=== PATIENT | female | born 1995 | race Asian ===

== ENCOUNTER 2017-01-07 06:18 | Emergency (ER) | payer OTHER ==
[2017-01-07] MEDS ORDERED: NS 1,000 ML IV ONE (07:01)
[2017-01-07] MEDS ORDERED: HYDROmorphONE/DILAUDID 1 MG/ML SYR IVP ONE (07:02)
[2017-01-07] MEDS ORDERED: METOCLOPRAMIDE 10 MG/2 ML VIAL IVP ONE (07:02)
[2017-01-07] MEDS ORDERED: DEXAMETHASONE 10 MG/ML VIAL IVP ONE (07:02)
--- NOTE | 2017-01-07 07:06 | EDPHY ---
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 She states that she has had a mild sore throat and runny nose body aches for the last 3 days. Her sore throat and runny nose have improved today compared to yesterday. Her headaches worsened however she is feeling nauseous. She states that this is the worst headache she has ever had. It was gradual in onset. She does not have any neck stiffness. She took Tylenol last night for a fever of 101 but did not make her headache improved. No significant past medical history. She is not sure she had the meningitis vaccine. No focal weakness or numbness. REVIEW OF SYSTEMS: Constitutional: denies: chills, fever, recent illness, recent injury EENTM: denies: blurred vision, double vision, nose congestion Respiratory: denies: cough, shortness of breath Cardiac: denies: chest pain, irregular heart rate, lightheadedness, palpitations Gastrointestinal/Abdominal: denies: abdominal pain, diarrhea, nausea, vomiting, blood streaked stools Genitourinary: denies: dysuria, frequency, hematuria, pain Musculoskeletal: denies: joint pain, muscle pain Skin: denies: lesions, rash, jaundice, bruising Neurological: See HPI Hematologic/Lymphatic: denies: blood clots, easy bleeding, easy bruising Immunologic/allergic: denies: HIV/AIDS, transplant EXAM: GENERAL: Well-appearing, well-nourished and in no acute distress. HEAD: Atraumatic, normocephalic. EYES: Pupils equal round and reactive to light, extraocular movements intact, sclera anicteric, conjunctiva are normal. ENT: TMs normal, nares patent, oropharynx clear without exudates. Moist mucous membranes. NECK: Normal range of motion, supple without lymphadenopathy or JVD. LUNGS: Breath sounds clear to auscultation bilaterally and equal. No wheezes rales or rhonchi. HEART: Regular rate and rhythm without murmurs, rubs or gallops. ABDOMEN: Soft, nontender, normoactive bowel sounds. No guarding, no rebound. No masses appreciated. BACK: No CVA tenderness, no spinal tenderness, step-offs or deformities EXTREMITIES: Normal range of motion, no pitting or edema. No clubbing or cyanosis. NEUROLOGICAL: Cranial nerves II through XII grossly intact. Normal speech, normal gait. 5/5 strength, normal movement in all extremities, normal sensation PSYCH: Normal mood, normal affect. SKIN: Warm, dry, normal turgor, no visible rashes or lesions. Source: Patient Exam Limitations: No limitations - Personal History LMP (Females 10-55): 8-14 Days Ago Current Tetanus/Diphtheria Vaccine: Yes Current Tetanus Diphtheria and Acellular Pertussis (TDAP): Yes - Medical/Surgical History Hx Asthma: No Hx Chronic Respiratory Disease: No Hx Diabetes: No Hx Cardiac Disease: No Hx Renal Disease: No Hx Cirrhosis: No Hx Alcoholism: No Hx HIV/AIDS: No Hx Splenectomy or Spleen Trauma: No Other PMH: DENIES - Family History Significant Family History: No pertinent family hx - Social History Smoking Status: Never smoked Alcohol Use: Sober Drug Use: None Constitutional: Initial Vital Signs Temperature (C) 37.9 C 01/07/17 06:26 Heart Rate 99 01/07/17 06:26 Respiratory Rate 18 01/07/17 06:26 Blood Pressure 120/74 01/07/17 06:26 O2 Sat (%) 96 01/07/17 06:26 O2 Delivery Mode Room Air Allergies/Adverse Reactions: penicillin G Allergy (Verified 01/07/17 06:29) Sulfa (Sulfonamide Antibiotics) Allergy (Verified 01/07/17 06:29) Home Medications: Medication Instructions Recorded Control Pills 01/07/17 Medical Decision Making - Diagnostics Imaging: Results: CT scan of the head was obtained. The results of the study are negative. The study was read by Dr. Wheatley. I viewed the images myself on the PACS system. Procedures: Procedure: Lumbar puncture. Indication: Headache and fever After verbal informed consent from patient explaining the risks including infection, bleeding, and neurologic damage, a lumbar puncture was performed after the patient was prepped and draped in the usual fashion. The back was anesthetized with 1% lidocaine. 22 gauge lumbar puncture needle used. Approximately 4 cc of clear fluid was obtained. Opening pressure was not obtained. There were no complications. The procedure was performed by myself. ED Course/Re-evaluation: 9:30 a.m. we discussed the lab work thus far performed lumbar puncture. The patient's headache is completely gone. 10:10 a.m. the patient is feeling well. Her headache has not returned. Father is in the room. We discussed the CSF results. I suspect that she has a viral meningitis. She looks well. I feel that she is safe for discharge. I asked her to follow up within 24 hours either here or through primary physician. She agrees and understands this plan. Differential Diagnosis: Partial list of the Differential diagnosis considered include but were not limited to; viral meningitis, upper respiratory tract infection, influenza and although unlikely based on the history and physical exam, I also considered bacterial meningitis, sepsis strep throat. I discussed these differential diagnoses and the plan with the patient as well as the usual and expected course. The patient understands that the diagnosis is provisional and that in medicine we are not always correct and that further workup is often warranted. Usual and customary warnings were given. All of the patient's questions were answered. The patient was instructed to return to the emergency department should the symptoms at all worsen or return, otherwise to followup with the physician as we discussed. - Data Points Laboratory Results: Laboratory Results 01/07/17 06:40 01/07/17 06:40 01/07/17 01/07/17 01/07/17 Unknown 07:30 07:30 WBC RBC Hgb Hct MCV MCH MCHC RDW Plt Count MPV Neut % (Auto) Lymph % (Auto) [place] % (Auto) Eos % (Auto) Baso % (Auto) Nucleat RBC Rel Count Absolute Neuts (auto) Absolute Lymphs (auto) Absolute Monos (auto) Absolute Eos (auto) Absolute Basos (auto) Absolute Nucleated RBC Immature Gran % Immature Gran # Sodium Potassium Chloride Carbon Dioxide Anion Gap BUN Creatinine Estimated GFR Glucose Calcium Beta HCG, Qual Urine Color Urine Appearance Urine pH Ur Specific [place] Urine Protein Urine Ketones Urine Blood Urine Nitrate Urine Bilirubin Urine Urobilinogen Ur Leukocyte Esterase Ur Culture Indicated? Urine Glucose Fl Pathologist Review CSF Tube Number CSF Appearance CSF Color CSF Supernatant CSF WBC CSF RBC CSF Neutrophils % CSF Lymphocytes % CSF Monos/Macrophage % CSF Glucose CSF Total Protein Influenza Typ A,B (DFA) NEGATIVE FOR FLU (NEGATIVE) Group A Strep Screen NEGATIVE (NEGATIVE) Group A Strep DNA Pending 01/07/17 01/07/17 01/07/17 07:20 07:03 06:40 WBC RBC Hgb Hct MCV MCH MCHC RDW Plt Count MPV Neut % (Auto) Lymph % (Auto) [place] % (Auto) Eos % (Auto) Baso % (Auto) Nucleat RBC Rel Count Absolute Neuts (auto) Absolute Lymphs (auto) Absolute Monos (auto) Absolute Eos (auto) Absolute Basos (auto) Absolute Nucleated RBC Immature Gran % Immature Gran # Sodium Potassium Chloride Carbon Dioxide Anion Gap BUN Creatinine Estimated GFR Glucose Calcium Beta HCG, Qual NEGATIVE Urine Color YELLOW Urine Appearance CLEAR Urine pH 6.0 (5.0-7.5) Ur Specific [place] 1.025 (1.002-1.030) Urine Protein NEGATIVE (NEGATIVE) Urine Ketones 2+ H (NEGATIVE) Urine Blood NEGATIVE (NEGATIVE) Urine Nitrate NEGATIVE (NEGATIVE) Urine Bilirubin NEGATIVE (NEGATIVE) Urine Urobilinogen NEGATIVE EU EU (0.2-1.0) Ur Leukocyte Esterase NEGATIVE (NEGATIVE) Ur Culture Indicated? NOT INDICATED (NI) Urine Glucose NEGATIVE (NEGATIVE) Fl Pathologist Review Pending CSF Tube Number 4 CSF Appearance CLEAR (CLEAR) CSF Color COLORLESS (COLORLESS) CSF Supernatant Not Reported CSF WBC 21 /mm3 H /mm3 (0-5) CSF RBC 6 /mm3 H /mm3 (0-0) CSF Neutrophils % 73 % H % (0-6) CSF Lymphocytes % 19 % % (0-100) CSF Monos/Macrophage % 7 % % (0-45) CSF Glucose 50 mg/dL mg/dL (50-75) CSF Total Protein 28 mg/dL mg/dL (12-60) Influenza Typ A,B (DFA) Group A Strep Screen Group A Strep DNA 01/07/17 01/07/17 06:40 06:40 WBC 8.39 10^3/uL 10^3/uL (3.80-9.50) RBC 4.60 10^6/uL 10^6/uL (4.18-5.33) Hgb 14.1 g/dL g/dL (12.6-16.3) Hct 40.7 % % (38.0-47.0) MCV 88.5 fL fL (81.5-99.8) MCH 30.7 pg pg (27.9-34.1) MCHC 34.6 g/dL g/dL (32.4-36.7) RDW 12.8 % % (11.5-15.2) Plt Count 245 10^3/uL 10^3/uL (150-400) MPV 10.1 fL fL (8.7-11.7) Neut % (Auto) 87.8 % H % (39.3-74.2) Lymph % (Auto) 5.5 % L % (15.0-45.0) [place] % (Auto) 5.6 % % (4.5-13.0) Eos % (Auto) 0.4 % L % (0.6-7.6) Baso % (Auto) 0.2 % L % (0.3-1.7) Nucleat RBC Rel Count 0.0 % % (0.0-0.2) Absolute Neuts (auto) 7.37 10^3/uL H 10^3/uL (1.70-6.50) Absolute Lymphs (auto) 0.46 10^3/uL L 10^3/uL (1.00-3.00) Absolute Monos (auto) 0.47 10^3/uL 10^3/uL (0.30-0.80) Absolute Eos (auto) 0.03 10^3/uL 10^3/uL (0.03-0.40) Absolute Basos (auto) 0.02 10^3/uL 10^3/uL (0.02-0.10) Absolute Nucleated RBC 0.00 10^3/uL 10^3/uL (0-0.01) Immature Gran % 0.5 % % (0.0-1.1) Immature Gran # 0.04 10^3/uL 10^3/uL (0.00-0.10) Sodium 138 mEq/L mEq/L (134-144) Potassium 3.8 mEq/L mEq/L (3.5-5.2) Chloride 108 mEq/L mEq/L (97-110) Carbon Dioxide 18 mEq/l L mEq/l (22-31) Anion Gap 12 mEq/L mEq/L (8-16) BUN 9 mg/dL mg/dL (7-23) Creatinine 0.7 mg/dL mg/dL (0.6-1.0) Estimated GFR > 60 Glucose 95 mg/dL mg/dL (70-100) Calcium 9.5 mg/dL mg/dL (8.5-10.4) Beta HCG, Qual Urine Color Urine Appearance Urine pH Ur Specific [place] Urine Protein Urine Ketones Urine Blood Urine Nitrate Urine Bilirubin Urine Urobilinogen Ur Leukocyte Esterase Ur Culture Indicated? Urine Glucose Fl Pathologist Review CSF Tube Number CSF Appearance CSF Color CSF Supernatant CSF WBC CSF RBC CSF Neutrophils % CSF Lymphocytes % CSF Monos/Macrophage % CSF Glucose CSF Total Protein Influenza Typ A,B (DFA) Group A Strep Screen Group A Strep DNA Microbiology Results: MICROBIOLOGY 01/07/17 08:30 Cerebral Spinal Fluid Gram Stain - Final Medications Given: Discontinued Medications Dexamethasone (Decadron Injection) 10 mg IVP EDNOW ONE Stop: 01/07/17 07:03 Last Admin: 01/07/17 07:17 Dose: 10 mg Diphenhydramine HCl (Benadryl Injection) 25 mg IVP EDNOW ONE Stop: 01/07/17 07:03 Last Admin: 01/07/17 07:17 Dose: 25 mg Hydromorphone HCl (Dilaudid) 0.5 mg IVP EDNOW ONE Stop: 01/07/17 07:03 Last Admin: 01/07/17 07:30 Dose: 0.5 mg Sodium Chloride (Ns) 1,000 mls @ 0 mls/hr IV ONCE ONE PRN Reason: Wide Open Stop: 01/07/17 07:02 Last Admin: 01/07/17 07:03 Dose: 1,000 mls Metoclopramide HCl (Reglan Injection) 10 mg IVP EDNOW ONE Stop: 01/07/17 07:03 Last Admin: 01/07/17 07:17 Dose: 10 mg Departure - Departure Disposition: Home, Routine, Self-Care Clinical Impression: Viral meningitis Condition: Fair Instructions: Viral Meningitis (ED) Additional Instructions: Follow up within 24 hours for re-evaluation or return to the emergency department. Referrals: NONE *PRIMARY CARE P,. [Primary Care Provider] - As per Instructions [facility] [Clinic] - As per Instructions Stand Alone Forms: School Excuse
[2017-01-07] MEDS ORDERED: DEXAMETHASONE 10 MG/ML VIAL ONE (07:07)
[2017-01-07 07:10] LABS: % IMMATURE GRANULYOCYTES 0.5 % (0.0-1.1); ABSOLUTE IMMATURE GRANULOCYTES 0.04 10^3/uL (0.00-0.10); ADD DIFF? NO; ADD MORPH? NO; ADD SCAN? NO; ATYPICAL LYMPHOCYTE FLAG 20 (0-99); FRAGMENT RBC FLAG 0 (0-99); HEMATOCRIT 40.7 % (38.0-47.0); HEMOGLOBIN 14.1 g/dL (12.6-16.3); LEFT SHIFT FLG 0 (0-99); LIPEMIA HEMOLYSIS FLAG 90 (0-99); MEAN CELL HEMOGLOBIN 30.7 pg (27.9-34.1); MEAN CELL HEMOGLOBIN CONCENTR. 34.6 g/dL (32.4-36.7); MEAN CELL VOLUME 88.5 fL (81.5-99.8); MEAN PLATELET VOLUME 10.1 fL (8.7-11.7); PLATELET CLUMPS FLAG 10 (0-99); PLATELET COUNT 245 10^3/uL (150-400); RED CELL DISTRIBUTION WIDTH 12.8 % (11.5-15.2)
[2017-01-07 07:30] LABS: ANION GAP 12 mEq/L (8-16); CALCIUM 9.5 mg/dL (8.5-10.4); CARBON DIOXIDE 18 mEq/l (22-31); CHLORIDE 108 mEq/L (97-110); CREATININE 0.7 mg/dL (0.6-1.0); GLOMERULAR FILTRATION RATE > 60; GLUCOSE 95 mg/dL (70-100); POTASSIUM 3.8 mEq/L (3.5-5.2); SODIUM 138 mEq/L (134-144)
[2017-01-07 07:37] LABS: COLOR YELLOW; LEUKOCYTE ESTERASE,URINE NEGATIVE (NEGATIVE); NITRITE,URINE NEGATIVE (NEGATIVE)
[2017-01-07 09:17] LABS: PROTEIN, CSF 28 mg/dL (12-60)
[2017-01-07 09:24] VITALS: RESP 16
[2017-01-07 09:45] LABS: CSF APPEARANCE CLEAR (CLEAR); CSF COLOR COLORLESS (COLORLESS); WBC, CSF 21 /mm3 (0-5)
[2017-01-07 10:29] VITALS: BP 113/73; PULSE 107; TEMP 99.1; O2SAT 96
== END 2017-01-07 10:35 | disposition home or self-care (01) ==
PROC: 009U3ZX Drainage of Spinal Canal, Percutaneous Approach, Diagnostic (ICD-10-PCS; principal; 2017-01-07)
DX: A87.9 Viral meningitis, unspecified (principal)
CPT/HCPCS: 96374; J1170; J1200; J2765